=== PATIENT | female | born 1970 | race Caucasian/White ===

== ENCOUNTER 2017-04-20 10:38 | Emergency (ER) | payer OTHER ==
[~2017-04-20] VITALS: Ht 149.9 cm; Wt 61.2 kg
[~2017-04-20 10:38] MED LIST: IBUP-2213 PO; OMEP40EC1 PO; TRAM50TA94 PO
[2017-04-20 10:49] VITALS: BP 140/85
[2017-04-20] MEDS ORDERED: KETOROLAC 60 MG/2 ML VIAL IM ONE (11:05)
[2017-04-20 11:29] VITALS: BP 140/85
== END 2017-04-20 11:29 | disposition home or self-care (01) ==
LOC: MED 10:38
DX: S16.1XXA Strain of muscle, fascia and tendon at neck level, initial encounter (principal); M25.511 Pain in right shoulder; K21.9 Gastro-esophageal reflux disease without esophagitis; Z90.89 Acquired absence of other organs; Z85.51 Personal history of malignant neoplasm of bladder; Z79.899 Other long term (current) drug therapy; Z88.0 Allergy status to penicillin; V49.49XA Driver injured in collision with other motor vehicles in traffic accident, initial encounter; Y93.89 Activity, other specified; Y92.488 Other paved roadways as the place of occurrence of the external cause; Y99.8 Other external cause status
CPT/HCPCS: 81002; 81025; 96372; 99283; J1885

== ENCOUNTER 2017-09-11 12:11 | Emergency (ER) | payer OTHER ==
[~2017-09-11] VITALS: Ht 162.6 cm; Wt 54.4 kg
[~2017-09-11 12:11] MED LIST changes: +TRAM50TA1 PO; -TRAM50TA94 PO
[2017-09-11] MEDS ORDERED: DIAZEPAM 5 MG TAB PO ONE (12:25)
[2017-09-11] MEDS ORDERED: KETOROLAC 30 MG/ML VIAL IM ONE (12:25)
[2017-09-11 12:26] VITALS: BP 142/95
[2017-09-11 14:02] VITALS: BP 115/58
== END 2017-09-11 13:55 | disposition home or self-care (01) ==
LOC: MED 12:11
DX: S30.0XXA Contusion of lower back and pelvis, initial encounter (principal); S20.229A Contusion of unspecified back wall of thorax, initial encounter; M62.830 Muscle spasm of back; E11.9 Type 2 diabetes mellitus without complications; K21.9 Gastro-esophageal reflux disease without esophagitis; Z85.51 Personal history of malignant neoplasm of bladder; Z79.899 Other long term (current) drug therapy; Z90.89 Acquired absence of other organs; Z88.0 Allergy status to penicillin; X58.XXXA Exposure to other specified factors, initial encounter; Y93.89 Activity, other specified; Y92.89 Other specified places as the place of occurrence of the external cause; Y99.8 Other external cause status
CPT/HCPCS: 71045; 72080; 96372; 99284; J1885

== ENCOUNTER 2019-01-20 09:21 | Emergency (ER) | payer OTHER ==
[~2019-01-20] VITALS: Ht 152.4 cm; Wt 63.5 kg
[2019-01-20 09:29] VITALS: BP 139/73
--- NOTE | 2019-01-20 09:30 | NUR ---
LABS COMPLETED AT BEDSIDE
--- NOTE | 2019-01-20 09:34 | NUR ---
Patient ambulated to bed 4. RN evaluating patient at bedside.
--- NOTE | 2019-01-20 09:37 | NUR ---
Note undone in EDM - 01/20/19 at 1013 by [email or web address] PATIENT PRESENTS TO ED WITH C/o cough, runny nose & headache X 4 DAYS. DENIES N/V/D; SKIN IS PINK/WARM/DRY; AAOX4 WITH EVEN AND STEADY GAIT; LUNGS CLEAR BL; HR EVEN AND REGULAR; PT DENIES ANY FEVER, CP OR SOB AT THIS TIME; PATIENT STATES PAIN OF 8/10 AT THIS TIME; VSS; PATIENT POSITIONED FOR COMFORT; HOB ELEVATED; BEDRAILS UP X2; BED DOWN. ER MD MADE AWARE OF PT STATUS.
--- NOTE | 2019-01-20 09:37 | NUR ---
PATIENT PRESENTS TO ED WITH C/o cough, runny nose & headache X 4 DAYS. DENIES N/V/D; SKIN IS PINK/WARM/DRY; AAOX4 WITH EVEN AND STEADY GAIT; LUNGS CLEAR BL; HR tachy 121/mins at this time. PT DENIES ANY FEVER, CP OR SOB AT THIS TIME; PATIENT STATES PAIN OF 8/10 AT THIS TIME; PATIENT POSITIONED FOR COMFORT; HOB ELEVATED; BEDRAILS UP X2; BED DOWN. ER MD MADE AWARE OF PT STATUS.
--- NOTE | 2019-01-20 09:50 | NUR ---
Patient being evaluated by DR ROSARIO at bedside.
[2019-01-20] MEDS ORDERED: IPRATROPIUM 0.02% 0.5 MG/2.5 ML NEBU INH ONE (09:55)
[2019-01-20] MEDS ORDERED: predniSONE 20 MG TAB PO ONE (09:55)
[2019-01-20] MEDS ORDERED: ALBUTEROL 0.083% 2.5 MG/3 ML NEBU INH ONE (09:55)
--- NOTE | 2019-01-20 10:03 | NUR ---
RT AT BEDSIDE FOR BREATHING TREATMENT.
--- NOTE | 2019-01-20 10:05 | NUR ---
X RAY AT BEDSIDE.
--- NOTE | 2019-01-20 10:11 | NUR ---
Patient being reevaluated by DR ROSARIO at bedside.
--- NOTE | 2019-01-20 10:48 | NUR ---
Dr. Gonzáles re-evaluating patient at bedside.
[2019-01-20] MEDS ORDERED: ACETAMINOPHEN 325 MG TAB PO ONE (10:50)
--- NOTE | 2019-01-20 11:12 | NUR ---
Patient discharged with v/s stable. Written and verbal after care instructions given and explained. Patient alert, oriented and verbalized understanding of instructions. Ambulatory with steady gait. All questions addressed prior to discharge. ID band removed. Patient advised to follow up with PMD. Rx of PREDNISONE, TESSALON, ALBUTEROL HHN given. Patient educated on indication of medication including possible reaction and side effects. Opportunity to ask questions provided and answered.
[2019-01-20 11:15] VITALS: BP 133/97
== END 2019-01-20 11:00 | disposition home or self-care (01) ==
LOC: MED 09:21
DX: B34.9 Viral infection, unspecified (principal); J98.01 Acute bronchospasm; R03.0 Elevated blood-pressure reading, without diagnosis of hypertension; Z85.51 Personal history of malignant neoplasm of bladder; Z88.0 Allergy status to penicillin; Z79.899 Other long term (current) drug therapy
CPT/HCPCS: 71045; 81002; 94640; 99283; J7512; J7613; J7644; Q0092

== ENCOUNTER 2019-06-23 14:15 | Emergency (ER) | payer OTHER ==
[~2019-06-23] VITALS: Ht 152.4 cm; Wt 63.5 kg
[~2019-06-23 14:15] MED LIST changes: -OMEP40EC1 PO; +OMEP40EC24 PO
[2019-06-23 14:29] VITALS: BP 121/85
--- NOTE | 2019-06-23 14:33 | NUR ---
Pt placed in bed 8.
[2019-06-23] MEDS ORDERED: ONDANSETRON 4 MG/2 ML VIAL IVP ONE (14:40)
[2019-06-23] MEDS ORDERED: KETOROLAC 30 MG/ML VIAL IVP ONE (14:40)
--- NOTE | 2019-06-23 14:40 | NUR ---
ERMD AT BEDSIDE
--- NOTE | 2019-06-23 15:30 | NUR ---
C/O HEADACHE, PRIMARILY LEFT SIDED 04/19 X 2 DAYS ACCOMPANIED BY NAUSEA AND VOMITING. PT STATES SHE TOOK IBUPROFEN WITH NO RELIEF. NEURO INTACT, NO SLURRED SPEECH, NO UNILATERAL WEAKNESS NOTED. BED IN LOW POSITION, SIDE RAIL UP X1.
[2019-06-23] MEDS ORDERED: SUMAtriptan 6 MG/0.5 ML VIAL SUBQ ONE (16:00)
[2019-06-23] MEDS ORDERED: NACL 0.9% 1,000 ML IV ONE (16:00)
[2019-06-23 17:00] VITALS: BP 123/89
--- NOTE | 2019-06-23 17:01 | NUR ---
Patient discharged with v/s stable. Written and verbal after care instructions given and explained. Patient verbalized understanding. Ambulatory with steady gait. All questions addressed prior to discharge. Advised to follow up with PMD. IMITREX AND IBUPROFEN GIVEN
== END 2019-06-23 17:01 | disposition home or self-care (01) ==
LOC: MED 14:15
DX: G43.909 Migraine, unspecified, not intractable, without status migrainosus (principal); Z88.0 Allergy status to penicillin; Z79.1 Long term (current) use of non-steroidal anti-inflammatories (NSAID); Z79.899 Other long term (current) drug therapy; Z85.51 Personal history of malignant neoplasm of bladder
CPT/HCPCS: 96361; 96372; 96374; 96375; 99283; J1885; J2405; J3030; J7030

== ENCOUNTER 2021-02-23 16:19 | Emergency (ER) | payer OTHER ==
[~2021-02-23] VITALS: Ht 162.6 cm; Wt 64.4 kg
[2021-02-23 16:28] VITALS: BP 113/72
[2021-02-23] MEDS ORDERED: methocarbamoL 500 MG TAB PO STA (16:56)
--- NOTE | 2021-02-23 17:10 | NUR ---
Ambulated to bed 10
--- NOTE | 2021-02-23 17:15 | NUR ---
50/F presents to ED with c/o mid back pain x1 week. Patient states she has had 9/10 mid back pain, denies injury or trauma. States she has been feeling increasingly more fatigued and having episodes of dizziness. Denies blurred vision, denies abdominal pain, nausea, vomiting, dysuria or hematuria.
--- NOTE | 2021-02-23 17:17 | NUR ---
Patient taken to xray via wheelchair
[2021-02-23] MEDS ORDERED: IBUP-2213 PO (18:28)
[2021-02-23] MEDS ORDERED: LID5T TP (18:28)
[2021-02-23] MEDS ORDERED: METH750T5 PO (18:28)
[2021-02-23 18:45] VITALS: BP 137/85
--- NOTE | 2021-02-23 18:45 | NUR ---
Patient discharged with v/s stable. Written and verbal after care instructions given and explained. Patient alert, oriented and verbalized understanding of instructions. Ambulatory with steady gait. All questions addressed prior to discharge. ID band removed. Patient advised to follow up with PMD. Rx of Lidoderm patch, Robaxin and Ibuprofen given. Patient educated on indication of medication including possible reaction and side effects. Opportunity to ask questions provided and answered.
== END 2021-02-23 18:45 | disposition home or self-care (01) ==
LOC: MED 16:19
DX: M47.816 Spondylosis without myelopathy or radiculopathy, lumbar region (principal); Z88.0 Allergy status to penicillin
CPT/HCPCS: 72072; 72100; 81002; 99284

== ENCOUNTER 2021-06-20 11:01 | Emergency (ER) | payer OTHER ==
[~2021-06-20] VITALS: Ht 148.6 cm; Wt 61.7 kg
[~2021-06-20 11:01] MED LIST changes: +LID5T TP; +METH750T5 PO
[2021-06-20 11:21] VITALS: BP 114/83
[2021-06-20] MEDS ORDERED: IBUP-2213 PO (12:47)
[2021-06-20] MEDS ORDERED: PROM118S5 PO (12:47)
[2021-06-20] MEDS ORDERED: PHEN177S23 PO (12:47)
--- NOTE | 2021-06-20 13:00 | NUR ---
JEF AND FLU SWABS TAKEN TO LAB, DROPPED OFF AT LAB WITH JOSH CPT
[2021-06-20 13:44] VITALS: BP 114/83
--- NOTE | 2021-06-20 13:44 | NUR ---
Patient discharged with v/s stable. Written and verbal after care instructions given and explained. Patient alert, oriented and verbalized understanding of instructions. Ambulatory with steady gait. All questions addressed prior to discharge. ID band removed. Patient advised to follow up with PMD. Rx of IBUPROFEN, PHENOL, AND PROMETHAZINE given. Patient educated on indication of medication including possible reaction and side effects. Opportunity to ask questions provided and answered.
== END 2021-06-20 13:44 | disposition home or self-care (01) ==
LOC: MED 11:01
DX: J06.9 Acute upper respiratory infection, unspecified (principal); Z88.0 Allergy status to penicillin; Z85.51 Personal history of malignant neoplasm of bladder; Z90.49 Acquired absence of other specified parts of digestive tract; Z79.899 Other long term (current) drug therapy
CPT/HCPCS: 87804; 99283

== ENCOUNTER 2021-08-21 19:37 | Emergency (ER) | payer OTHER ==
[~2021-08-21] VITALS: Ht 160 cm; Wt 65.8 kg
[2021-08-21 19:37] VITALS: BP 155/97
[~2021-08-21 19:37] MED LIST changes: +PHEN177S23 PO; +PROM118S5 PO
--- NOTE | 2021-08-21 19:41 | NUR ---
PT YESI ALS. TAKEN TOP BED 5
[2021-08-21] MEDS: ACETAMINOPHEN EXTRA STRENGTH 500 MG TAB PO ONE (20:40)
--- NOTE | 2021-08-21 20:45 | NUR ---
patient ambulated to the bathroom.
[2021-08-21] MEDS: ONDANSETRON 4 MG ODT PO ONE (21:09)
[2021-08-21] MEDS: MORPHINE SULFATE 4 MG/ML SYR IM ONE (21:10)
[2021-08-21] MEDS ORDERED: LID5T TP (21:58)
[2021-08-21] MEDS ORDERED: IBUP-2213 PO (21:58)
--- NOTE | 2021-08-21 22:05 | NUR ---
Dr. Taylor examining patient.
[2021-08-21 22:12] VITALS: BP 115/77
--- NOTE | 2021-08-21 22:12 | NUR ---
Patient discharged with v/s stable. Written and verbal after care instructions given and explained. Patient alert, oriented and verbalized understanding of instructions. Ambulatory with steady gait. All questions addressed prior to discharge. ID band removed. Patient advised to follow up with PMD. Rx of ibuprofen and lidoderm 5% patch given. Patient educated on indication of medication including possible reaction and side effects. Opportunity to ask questions provided and answered.
== END 2021-08-21 22:12 | disposition home or self-care (01) ==
LOC: MED 19:37
DX: S16.1XXA Strain of muscle, fascia and tendon at neck level, initial encounter (principal); Z79.899 Other long term (current) drug therapy; Z79.1 Long term (current) use of non-steroidal anti-inflammatories (NSAID); Z79.891 Long term (current) use of opiate analgesic; Z88.0 Allergy status to penicillin; V89.2XXA Person injured in unspecified motor-vehicle accident, traffic, initial encounter; Y93.89 Activity, other specified; Y92.410 Unspecified street and highway as the place of occurrence of the external cause; Y99.8 Other external cause status
CPT/HCPCS: 70490; 71101; 96372; 99284; J2270; Q0162

== ENCOUNTER 2021-12-27 18:17 | Emergency (ER) | payer OTHER ==
[~2021-12-27] VITALS: Ht 152.4 cm; Wt 59.0 kg
[2021-12-27 18:40] VITALS: BP 134/89
[2021-12-27] MEDS ORDERED: BACITRACIN OP STA (21:25)
[2021-12-27] MEDS ORDERED: cephALEXin 500 MG CAP PO ONE (21:25)
[2021-12-27] MEDS ORDERED: [UNRECOGNIZED DRUG - OTHER] OP STA (21:25)
[2021-12-27] MEDS ORDERED: CEPH-588 PO (21:29)
--- NOTE | 2021-12-27 21:48 | NUR ---
d/c with VSS. d/c education given. opportunity to ask questions given and answered. rx of keflex given.
[2021-12-27 21:49] VITALS: BP 125/84
== END 2021-12-27 21:48 | disposition home or self-care (01) ==
LOC: MED 18:17
DX: S80.211A Abrasion, right knee, initial encounter (principal); L03.115 Cellulitis of right lower limb; E11.9 Type 2 diabetes mellitus without complications; Z85.51 Personal history of malignant neoplasm of bladder; Z79.2 Long term (current) use of antibiotics; Z79.899 Other long term (current) drug therapy; Z79.1 Long term (current) use of non-steroidal anti-inflammatories (NSAID); Z79.891 Long term (current) use of opiate analgesic; Z88.0 Allergy status to penicillin; W10.8XXA Fall (on) (from) other stairs and steps, initial encounter; Y93.01 Activity, walking, marching and hiking; Y92.89 Other specified places as the place of occurrence of the external cause; Y99.8 Other external cause status
CPT/HCPCS: 99283

== ENCOUNTER 2022-10-17 10:47 | Emergency (ER) | payer OTHER ==
[~2022-10-17] VITALS: Ht 162.6 cm; Wt 62.1 kg
[~2022-10-17 10:47] MED LIST changes: +CEPH-588 PO; +TRAM-748 PO; -TRAM50TA1 PO
[2022-10-17 11:11] VITALS: BP 138/99
[2022-10-17] MEDS ORDERED: NACL 0.9% 1,000 ML IV ONE (12:35)
[2022-10-17] MEDS ORDERED: diazePAM 5 MG TAB PO ONE (12:35)
[2022-10-17] MEDS ORDERED: MECLIZINE 25 MG TAB PO ONE (12:35)
[2022-10-17] MEDS ORDERED: KETOROLAC 15 MG/ML VIAL IVP ONE (12:35)
--- NOTE | 2022-10-17 13:17 | NUR ---
Called pt in lobby and surrounding. Pt not in CT. No answer from pt at this time
--- NOTE | 2022-10-17 13:23 | NUR ---
Pt was outside in parking lot. Pt ambulated with a steady gait to bed 3 at this time. Lab at bedside
--- NOTE | 2022-10-17 13:30 | NUR ---
Pt states she as an all over [facility] non-radiating 01/17, achy [pain
[2022-10-17 13:41] LABS: BASOPHILS % (AUTO) 0.4 % (0.0-2.0); EOSINOPHILS # (AUTO) 0.1 K/uL (0-0.4); EOSINOPHILS % (AUTO) 1.1 % (0.0-4.0); HEMATOCRIT 37.9 % (36-48); HEMOGLOBIN 12.6 g/dL (12.0-16.0); LYMPHOCYTES # (AUTO) 2.1 K/uL (2.5-16.5); LYMPHOCYTES % (AUTO) 37.2 % (20.5-51.1); MEAN CORPUSCULAR HEMOGLOBIN 30 pg (27-31); MEAN CORPUSCULAR HGB CONC 33 g/dL (33-37); MEAN CORPUSCULAR VOLUME 89.1 fL (80-94); MONOCYTES # (AUTO) 0.6 K/uL (0.8-1.0); MONOCYTES % (AUTO) 10.2 % (1.7-9.3); NEUTROPHILS # (AUTO) 2.8 K/uL (1.8-7.7); NEUTROPHILS % (AUTO) 51.1 % (42.2-75.2); PLATELET COUNT (AUTO) 247 K/uL (140-450); RED BLOOD CELL COUNT(AUTO) 4.26 MIL/uL (4.20-5.40); RED CELL DISTRIBUTION WIDTH 14.3 % (11.6-13.7); WHITE BLOOD COUNT (AUTO) 5.5 K/uL (4.8-10.8)
--- NOTE | 2022-10-17 13:45 | NUR ---
Pt states that pain has resolved. 0/10 pain
[2022-10-17 14:01] LABS: ALBUMIN 4.1 g/dL (3.4-5.0); ANION GAP 4.8 (8-16); ASPARTATE AMINOTRANSFERASE 25 U/L (15-37); CARBON DIOXIDE 29.6 mmol/L (21-32); CHLORIDE 101 mmol/L (98-107); CREATININE 0.7 mg/dL (0.6-1.3); GFR ARICAN-AMERICAN 112 mL/min (>90); GLUCOSE 120 mg/dL (74-106); POTASSIUM 4.4 mmol/L (3.5-5.1); SODIUM SERUM 131 mmol/L (136-145); TOTAL BILIRUBIN 0.8 mg/dL (0.0-1.0); UREA NITROGEN, BLOOD 11 mg/dL (7-18)
--- NOTE | 2022-10-17 15:36 | NUR ---
Pt in bed, VSS. No changes at this time. SR bilat up x 2. Update given to pt at this time
[2022-10-17] MEDS ORDERED: MECL-303 PO (16:26)
[2022-10-17 17:00] VITALS: BP 118/77
== END 2022-10-17 17:00 | disposition home or self-care (01) ==
LOC: MED 10:47
DX: R42 Dizziness and giddiness (principal); I10 Essential (primary) hypertension; I25.10 Atherosclerotic heart disease of native coronary artery without angina pectoris; E11.9 Type 2 diabetes mellitus without complications; Z88.0 Allergy status to penicillin; Z79.4 Long term (current) use of insulin; Z79.899 Other long term (current) drug therapy
CPT/HCPCS: 36415; 70450; 71045; 80053; 81025; 84484; 85025; 93005; 96361; 96374; 99285; J1885; J8597

== ENCOUNTER 2023-05-24 23:14 | Emergency (ER) | payer OTHER ==
[~2023-05-24] VITALS: Ht 162.6 cm; Wt 59.0 kg
[~2023-05-24 23:14] MED LIST changes: +MECL-303 PO
[2023-05-24 23:31] VITALS: BP 132/89; PULSE 78; RESP 17; TEMP 98.2; O2SAT 99
[2023-05-25] MEDS ORDERED: ACETAMINOPHEN EXTRA STRENGTH 500 MG TAB PO ONE (02:00)
[2023-05-25] MEDS ORDERED: KETOROLAC 15 MG/ML VIAL IM ONE (02:00)
[2023-05-25] MEDS ORDERED: FLUTICASONE NASAL 50 MCG/ACTUATION 16 GM BTL NS STA (02:34)
[2023-05-25] MEDS ORDERED: PSEUDOEPHEDRINE 30 MG TAB PO ONE (02:35)
[2023-05-25 03:03] LABS: FLU A ANTIGEN negative (NEGATIVE); FLU B ANTIGEN NEGATIVE (NEGATIVE)
[2023-05-25 03:46] VITALS: BP 132/89; PULSE 78; RESP 17; TEMP 98.2; O2SAT 99
== END 2023-05-25 03:46 | disposition home or self-care (01) ==
LOC: MED 23:14
DX: R03.0 Elevated blood-pressure reading, without diagnosis of hypertension (principal); E11.9 Type 2 diabetes mellitus without complications; Z20.822 Contact with and (suspected) exposure to COVID-19; Z79.899 Other long term (current) drug therapy; Z88.0 Allergy status to penicillin; Z85.51 Personal history of malignant neoplasm of bladder
CPT/HCPCS: 87426; 87804; 96361; 96374; 99285; J1885

== ENCOUNTER 2023-05-25 11:56 | Emergency (ER) | payer OTHER ==
[~2023-05-25] VITALS: Ht 162.6 cm; Wt 59.0 kg
[2023-05-25 11:57] VITALS: BP 131/84; PULSE 94; RESP 20; TEMP 98.7; O2SAT 98
== END 2023-05-25 13:46 | disposition home or self-care (01) ==
LOC: MED 11:56
DX: J06.9 Acute upper respiratory infection, unspecified (principal); E11.9 Type 2 diabetes mellitus without complications; Z88.0 Allergy status to penicillin; Z79.899 Other long term (current) drug therapy; Z85.51 Personal history of malignant neoplasm of bladder
CPT/HCPCS: 99281

== ENCOUNTER 2024-06-12 18:45 | Emergency (ER) | payer OTHER ==
[~2024-06-12] VITALS: Ht 149.9 cm; Wt 63.6 kg
[2024-06-12 18:52] VITALS: BP 144/91; PULSE 89; RESP 18; TEMP 97.3; O2SAT 98
[2024-06-12 21:10] LABS: BASOPHILS % (AUTO) 0.3 % (0.0-2.0); EOSINOPHILS # (AUTO) 0.1 K/uL (0-0.4); EOSINOPHILS % (AUTO) 1.5 % (0.0-4.0); HEMATOCRIT 36.1 % (36-48); HEMOGLOBIN 12.1 g/dL (12.0-16.0); LYMPHOCYTES # (AUTO) 2.7 K/uL (2.5-16.5); LYMPHOCYTES % (AUTO) 43.2 % (20.5-51.1); MEAN CORPUSCULAR HEMOGLOBIN 30 pg (27-31); MEAN CORPUSCULAR HGB CONC 33 g/dL (33-37); MONOCYTES # (AUTO) 0.7 K/uL (0.8-1.0); MONOCYTES % (AUTO) 11.7 % (1.7-9.3); NEUTROPHILS # (AUTO) 2.7 K/uL (1.8-7.7); NEUTROPHILS % (AUTO) 43.3 % (42.2-75.2); PLATELET COUNT (AUTO) 210 K/uL (140-450); RED BLOOD CELL COUNT(AUTO) 4.01 MIL/uL (4.20-5.40); RED CELL DISTRIBUTION WIDTH 14.3 % (11.6-13.7); WHITE BLOOD COUNT (AUTO) 6.2 K/uL (4.8-10.8)
[2024-06-12 21:14] LABS: ANION GAP 10.4 (8-16); CALCIUM 9.3 mg/dL (8.5-10.1); CARBON DIOXIDE 31.1 mmol/L (21-32); CREATININE 0.7 mg/dL (0.6-1.3); POTASSIUM 4.5 mmol/L (3.5-5.1)
[2024-06-12 21:21] LABS: APPEARANCE,URINE CLEAR (CLEAR); BILIRUBIN,URINE NEGATIVE (NEGATIVE); BLOOD, URINE NEGATIVE (NEGATIVE); COLOR,URINE YELLOW (YELLOW); LEUKOCYTE ESTERASE ,URINE NEGATIVE (NEGATIVE); NITRITE, URINE NEGATIVE (NEGATIVE); PROTEIN,URINE NEGATIVE (NEGATIVE); UGLUCOSE NEGATIVE (NEGATIVE); UROBILINOGEN,URINE 0.2 EU/dL (0.2 - 1)
[2024-06-12 21:22] LABS: ALBUMIN 3.9 g/dL (3.4-5.0); BILIRUBIN,DIRECT 0.2 mg/dL (0.0-0.3); TOTAL BILIRUBIN 1.2 mg/dL (0.0-1.0); TOTAL PROTEIN, SERUM 7.6 g/dL (6.4-8.2)
[2024-06-12 21:30] VITALS: O2SAT 98
[2024-06-12] MEDS: KETOROLAC 30 MG/ML VIAL IM ONE (22:42)
[2024-06-12 23:58] VITALS: O2SAT 98
[2024-06-13] MEDS ORDERED: NAPR-337 PO (00:56)
[2024-06-13] MEDS ORDERED: CYCL-711 PO (00:56)
[2024-06-13 01:41] VITALS: BP 136/87; PULSE 86; RESP 18; TEMP 97.3; O2SAT 98
== END 2024-06-13 01:42 | disposition home or self-care (01) ==
LOC: MED 18:45
DX: N20.0 Calculus of kidney (principal); E11.9 Type 2 diabetes mellitus without complications; Z85.51 Personal history of malignant neoplasm of bladder; Z90.49 Acquired absence of other specified parts of digestive tract; Z98.890 Other specified postprocedural states; Z79.899 Other long term (current) drug therapy; Z88.0 Allergy status to penicillin; Z88.1 Allergy status to other antibiotic agents
CPT/HCPCS: 36415; 74176; 80048; 80076; 81003; 83690; 85025; 96372; 99285; J1885